=== PATIENT | female | born 1990 | race Two or more races ===

== ENCOUNTER 2020-11-25 16:37 | Emergency (ER) | payer MEDICAID, OTHER, SELFPAY ==
[~2020-11-25] VITALS: Ht 160 cm; Wt 77.7 kg
--- NOTE | 2020-11-25 16:55 | NUR ---
PATIENT WHEELED BACK FROM TRIAGE WITH CHIEF C/O ABD PAIN THAT STARTED AN HOUR AGO. PATIENT REPORTS PAIN IS ACROSS HER UPPER ABD. DENIES N/V/D, NO FEVERS, DENIES SOB AND CP. A&OX4, CONNECTED TO MONITOR, JESUS HILLIARD, ACCOMPAINED BY MOM, CALL LIGHT WITHIN REACH.
--- NOTE | 2020-11-25 17:26 | NUR ---
ERMD AT BEDSIDE FOR EVALUATION.
[2020-11-25] MEDS ORDERED: MORPHINE SULFATE 4 MG/ML, 1ML IVPush PRN (17:30)
[2020-11-25] MEDS ORDERED: ONDANSETRON 2MG/ML, 2ML IVPush ONE (17:30)
--- NOTE | 2020-11-25 17:41 | NUR ---
IMAGING AT BEDSIDE.
[2020-11-25] MEDS ORDERED: MORPHINE SULFATE 4 MG/ML, 1ML ONE (17:43)
[2020-11-25] MEDS ORDERED: ONDANSETRON 2MG/ML, 2ML ONE (17:43)
--- NOTE | 2020-11-25 17:54 | NUR ---
ULTRASOUND AT BEDSIDE.
--- NOTE | 2020-11-25 18:00 | NUR ---
20 GAUGE IV STARTED LEFT AC, PATIENT MEDICATED PER eMAR.
[2020-11-25 18:03] LABS: BASOPHILS % (AUTO) 1 % (0-1); EOSINOPHILS % (AUTO) 4 % (1-7); LYMPHOCYTES % (AUTO) 12 % (22-44); MEAN CORPUSCULAR HEMOGLOBIN 33.2 pg (27.0-34.8); MEAN CORPUSCULAR HGB CONC 34.2 g/dL (32.4-35.8); MONOCYTES % (AUTO) 7 % (2-9); NEUTROPHILS % (AUTO) 77 % (42-75); PLATELET COUNT 398 x10^3/uL (130-400); RED BLOOD COUNT 3.88 x10^6/uL (3.82-5.3)
[2020-11-25 18:08] LABS: MD NO
[2020-11-25 18:12] LABS: ALBUMIN 3.5 g/dL (3.4-5.0); ANION GAP 5 mmol/L (5-15); CALCIUM 8.1 mg/dL (8.5-10.1); CHLORIDE 107 mmol/L (98-107)
[2020-11-25 18:19] LABS: ALANINE AMINOTRANSFERASE 53 U/L (12-78); ALKALINE PHOSPHATASE 55 U/L (45-117); BILIRUBIN,TOTAL 1.1 mg/dL (0.2-1.0); CREATININE 0.69 mg/dL (0.55-1.02); TOTAL PROTEIN 7.2 g/dL (6.4-8.2)
--- NOTE | 2020-11-25 18:47 | NUR ---
REPORT TO ANALILIA PEREZ FOR TRANSFER OF PATIENT CARE.
--- NOTE | 2020-11-25 19:14 | NUR ---
PT SITTING UP IN BED, MOTHER AT BEDSIDE, PT NOT COMPLAINING OF PAIN, ALL NEEDS IN REACH, CALL LIGHT IN REACH, NAD
[2020-11-25 19:42] VITALS: BP 109/66
== END 2020-11-25 19:58 | disposition home or self-care (01) ==
LOC: ED 18:27
DX: K80.20 Calculus of gallbladder without cholecystitis without obstruction (principal)
CPT/HCPCS: 36415; 76700; 80053; 83690; 84703; 85025; 96374; 96375; 99284; J2270; J2405